=== PATIENT | female | born 1950 | race Caucasian/White ===

== ENCOUNTER 2017-05-29 12:45 | Outpatient (CLI) | payer MEDICARE, MEDICAID ==
[2017-05-29 19:31] LABS: BASOPHILS # (AUTO) 0.1 10^3/uL (0.0-0.1); BASOPHILS % (AUTO) 0.9 %; EOSINOPHILS # (AUTO) 0.1 10^3/uL (0.0-0.7); EOSINOPHILS % (AUTO) 1.7 %; HCT - HEMATOCRIT 37.5 % (37.0-47.0); HGB - HEMOGLOBIN 12.1 g/dL (12.0-16.0); LYMPHOCYTES # (AUTO) 1.7 10^3/uL (1.5-3.5); LYMPHOCYTES % (AUTO) 24.8 %; MEAN CORPUSCULAR HEMOGLOBIN 29.2 pg (27.0-31.0); MEAN CORPUSCULAR HGB CONC 32.4 g/dL (32.0-36.0); MEAN CORPUSCULAR VOLUME 90.1 fL (81.0-99.0); MONOCYTES # (AUTO) 0.5 10^3/uL (0.0-1.0); MONOCYTES % (AUTO) 7.1 %; NEUTROPHILS # (AUTO) 4.4 10^3/uL (1.5-6.6); NEUTROPHILS % (AUTO) 65.5 %; RED BLOOD COUNT 4.16 10^6/uL (4.20-5.40); UNCORRECTED WHITE BLOOD COUNT 6.7 x10^3/uL; WHITE BLOOD COUNT 6.7 x10^3/uL (4.8-10.8)
[2017-05-29 19:32] LABS: H. PYLORI IGG ANTIBODY Negative (Negative); HPYLORI NEG QC Negative (Negative); HPYLORI POS QC POSITIVE (Positive)
== END 2017-05-29 12:46 ==
LOC: LAB.WCP 12:45
PROVIDERS: ATTEND Family Medicine
DX: K21.9 Gastro-esophageal reflux disease without esophagitis (principal); K92.0 Hematemesis
CPT/HCPCS: 36415; 85025; 87339

== ENCOUNTER 2017-06-14 08:00 | Outpatient (CLI) | payer MEDICARE, MEDICAID ==
[2017-06-14 19:52] LABS: THYROID STIMULATING HORMONE 0.41 uIU/mL (0.34-5.60)
[2017-06-14 19:59] LABS: FERRITIN 14.5 ng/mL (11.0-306.8)
[2017-06-14 20:47] LABS: ALBUMIN/GLOBULIN RATIO 1.3 (1.0-2.2); BILIRUBIN,TOTAL 0.2 mg/dL (0.2-1.0); BUN - BLOOD UREA NITROGEN 12 mg/dL (6-20); CALCIUM 9.1 mg/dL (8.5-10.3); CARBON DIOXIDE - CO2 27 mmol/L (21-32); CHLORIDE 103 mmol/L (101-111); CREATININE 0.7 mg/dL (0.4-1.0); GFR - MDRD 83 (>89); GLUCOSE 123 mg/dL (70-100); IRON 18 ug/dL (28-170); SODIUM 141 mmol/L (135-145); TOTAL IRON BINDING CAPACITY 529 ug/dL (250-450); TOTAL PROTEIN 6.7 g/dL (6.7-8.2); TRANSFERRIN 378 mg/dL (192-382)
== END 2017-06-14 08:01 | disposition home or self-care (01) ==
LOC: LAB.WCP 08:00
PROVIDERS: ATTEND Physician Assistant Medical
DX: F10.20 Alcohol dependence, uncomplicated (principal); K21.9 Gastro-esophageal reflux disease without esophagitis; E53.8 Deficiency of other specified B group vitamins; E03.9 Hypothyroidism, unspecified
CPT/HCPCS: 36415; 80053; 82306; 82607; 82728; 83540; 84425; 84443; 84466

== ENCOUNTER 2017-09-04 11:38 | Day surgery (SDC) | payer MEDICARE, MEDICAID ==
[~2017-09-04 11:38] MED LIST: LACTATED RINGERS 1,000 ML IV ONE
[2017-09-04] MEDS ORDERED: LACTATED RINGERS 1,000 ML IV ONE (12:12)
[2017-09-04] MEDS ORDERED: MIDAZOLAM 2 MG/2 ML VIAL IVP ONE (12:21)
[2017-09-04] MEDS ORDERED: fentaNYL 100 MCG/2 ML VIAL IVP ONE (12:21)
[2017-09-04] MEDS ORDERED: BENZOCAINE/TETRACAINE/BUTAMBEN SPRAY 56 GM TOP ONE (12:26)
[2017-09-04] MEDS ORDERED: LIDO GARGLE 30 ML BOTTLE PO ONE (12:26)
[2017-09-04 13:48] VITALS: BP 126/87
== END 2017-09-04 11:39 | disposition home or self-care (01) ==
LOC: SDS 11:38
PROVIDERS: ATTEND Surgery
PROC: 0DB48ZX Excision of Esophagogastric Junction, Via Natural or Artificial Opening Endoscopic, Diagnostic (ICD-10-PCS; principal; 2017-09-04 12:45)
DX: K20.9 Esophagitis, unspecified (principal); K44.9 Diaphragmatic hernia without obstruction or gangrene; I10 Essential (primary) hypertension; E03.9 Hypothyroidism, unspecified; G47.30 Sleep apnea, unspecified
CPT/HCPCS: 43239; A9270; J7120

== ENCOUNTER 2017-09-18 08:39 | Outpatient (CLI) | payer MEDICARE, MEDICAID ==
[2017-09-18 13:23] LABS: CHOLESTEROL 175 mg/dL; HDL CHOLESTEROL 59 mg/dL; LDL CHOLESTEROL,CALCULATED 99 mg/dL; LDL/HDL RATIO 1.7 (<4.4); VLDL CHOLESTEROL 17 mg/dL
== END 2017-09-18 08:40 | disposition home or self-care (01) ==
LOC: LAB.N 08:39
PROVIDERS: ATTEND Nurse Practitioner
DX: F41.1 Generalized anxiety disorder (principal); I10 Essential (primary) hypertension; F33.1 Major depressive disorder, recurrent, moderate; E03.9 Hypothyroidism, unspecified
CPT/HCPCS: 36415; 80061; 83721

== ENCOUNTER 2018-04-11 11:58 | Outpatient (CLI) | payer MEDICARE, MEDICAID ==
[2018-04-11 19:19] LABS: CALCIUM 8.8 mg/dL (8.5-10.3); CREATININE 0.5 mg/dL (0.4-1.0)
== END 2018-04-11 11:59 | disposition home or self-care (01) ==
LOC: LAB.N 11:58
PROVIDERS: ATTEND Registered Nurse
DX: F31.9 Bipolar disorder, unspecified (principal); Z79.899 Other long term (current) drug therapy
CPT/HCPCS: 36415; 80048

== ENCOUNTER 2018-09-10 10:40 | Outpatient (CLI) | payer MEDICARE, MEDICAID ==
--- NOTE | 2018-09-10 14:45 | XRAY Report ---
Reason: SHOULDER JOINT PAIN Procedure Date: 09/10/2018 Accession Number: [id number] / [id number] Procedure: XRN - Shoulder 2 View RT CPT Code: FULL RESULT: EXAM: RIGHT SHOULDER RADIOGRAPHY EXAM DATE: 09/10/2018 11:04 AM. CLINICAL HISTORY: Shoulder joint pain. COMPARISON: None. TECHNIQUE: 3 views. FINDINGS: Bones: Normal. No fracture or bone lesion. Joints: There is narrowing of the glenohumeral joint with subchondral sclerosis in the humeral head and moderate to large inferior osteophytes of the humeral head and adjacent bony glenoid. Smaller superior glenoid osteophyte. Soft tissues: The visualized hemithorax is unremarkable. No soft tissue swelling. IMPRESSION: Moderate to severe degenerative arthritis of the glenohumeral joint. [facility]
== END 2018-09-10 10:41 | disposition home or self-care (01) ==
LOC: DI.N 10:40
PROVIDERS: ATTEND Nurse Practitioner
DX: M19.011 Primary osteoarthritis, right shoulder (principal)

== ENCOUNTER 2018-11-03 09:49 | Outpatient (CLI) | payer MEDICARE, MEDICAID ==
--- NOTE | 2018-11-05 08:47 | MRI Report ---
Reason: DEGENERATIVE JOINT DISEASE Procedure Date: 11/03/2018 Accession Number: [id number] / [id number] Procedure: MRI - Shoulder RT W/O CPT Code: FULL RESULT: EXAM: RIGHT SHOULDER MRI WITHOUT CONTRAST EXAM DATE: 11/03/2018 11:00 AM. CLINICAL HISTORY: Worsening shoulder pain. Limited range of motion. COMPARISON: SHOULDER 2 VIEW RT 09/10/2018 11:08 AM. TECHNIQUE: Multiplanar, multisequence T1-weighted and fluid-sensitive sequences of the shoulder without contrast. Other: None. FINDINGS: Acromioclavicular Region: The acromion is type II. Moderate acromioclavicular joint osteoarthritis with edema of the adjacent ends of the acromion and clavicle. Inferiorly projecting osteophytes narrow the subacromial space. There is a moderate-sized bursal effusion. Glenohumeral Region: There is severe erosion of the glenohumeral cartilage with osteophyte formation and subchondral cysts. There is subchondral edema and remodeling of the glenoid and humeral head. The findings are consistent with severe osteoarthritis. There is severe labral degeneration. There is a moderate-sized joint effusion with synovial thickening consistent with synovitis. Bone Marrow: See above. Labrum: See above. Musculature/Rotator Cuff: There is a low-grade partial-thickness tear of the humeral surface fibers of supraspinatus at the musculotendinous junction measuring approximately 16 x 13 mm. There is moderate infraspinatus tendinosis. A focus of low T1, low T2 signal change in the infraspinatus tendon suggests prior calcific tendinosis. There is low-grade partial-thickness tearing of the musculotendinous junction of subscapularis. No edema or fatty atrophy. Biceps Tendon: The long head of the biceps tendon and biceps pedrito are intact. Other: The subcutaneous tissues are unremarkable. IMPRESSION: 1. Severe glenohumeral osteoarthritis with a joint effusion and synovitis. 2. Mild to moderate acromioclavicular joint osteoarthritis. 3. Low-grade degenerative fraying of supraspinatus and subscapularis. Findings suggestive of prior calcific tendinosis of infraspinatus. 4. Circumferential labral degeneration. [facility]
== END 2018-11-03 09:50 | disposition home or self-care (01) ==
LOC: DI 09:49
PROVIDERS: ATTEND Orthopaedic Surgery Sports Medicine
DX: M19.011 Primary osteoarthritis, right shoulder (principal); M25.411 Effusion, right shoulder; M65.811 Other synovitis and tenosynovitis, right shoulder

== ENCOUNTER 2018-11-13 13:06 | Outpatient (CLI) | payer MEDICARE, MEDICAID ==
[2018-11-13] MEDS ORDERED: BUFFERED LIDOCAINE 10 ML SYRINGE ONE (13:15)
[2018-11-13] MEDS ORDERED: IOTHALAMATE MEGLUMINE 50 ML VIAL ONE (13:15)
[2018-11-13] MEDS ORDERED: methylPREDNISolone ACETATE 40 MG/ML VIAL IM ONE ×2 (14:59)
[2018-11-13] MEDS ORDERED: IOTHALAMATE MEGLUMINE 50 ML VIAL IVP ONE ×2 (14:59)
[2018-11-13] MEDS ORDERED: BUFFERED LIDOCAINE 10 ML SYRINGE IU ONE ×2 (14:59)
[2018-11-13] MEDS ORDERED: BUPIVACAINE 0.5% PF 10 ML VIAL IM ONE ×2 (15:13)
[2018-11-13] MEDS ORDERED: ROPIVACAINE 0.2% PF 20 ML AMPULE SUBQ ONE (15:49)
--- NOTE | 2018-11-13 16:21 | XRAY Report ---
Reason: DEGENERATIVE JOINT DISEASE Procedure Date: 11/13/2018 Accession Number: [id number] / [id number] Procedure: FL - Inj/Aspiration Major Joint CPT Code: FULL RESULT: EXAM: RIGHT SHOULDER FLUOROSCOPIC INJECTION FOR PAIN EXAM DATE: 11/13/2018 02:08 PM. REFERRING PROVIDER: Glenn Webber. CLINICAL HISTORY: Degenerative joint disease. COMPARISON: SHOULDER 2 VIEW RT 09/10/2018 11:08 AM. TECHNIQUE: The risks, benefits and alternatives of this examination were discussed in detail with the patient. Risks of bleeding, infection, and increasing discomfort in the right shoulder joint were included in the discussion. The patient appeared to understand, and signed, dated, and timed an informed consent document, which was also signed by me and a witness. The skin was prepped with chlorhexidine gluconate and draped in the usual sterile manner, and 5 mL of 1% buffered lidocaine was used for local analgesia. Under fluoroscopic control, a 22-gauge needle was placed into the right shoulder joint capsule. After achieving low resistance to the injection of lidocaine, then a combination of 8 mL of 0.5% bupivacaine, 2 mL (80 mg) of Depo-Medrol mixed with 5 cc of Conray 60 was injected without difficulty. The needle was removed, and the patient was released from our clinic. Patient reported immediate improvement in pain symptoms estimated at 100% reduction. The patient was instructed in the potential signs and symptoms for infection or septic arthritis. The patient was asked to call [facility] or the referring physician or go to the emergency room if these signs and symptoms should appear. Fluoroscopy Time: 1 minute 21 seconds. Number of Images: 3 IMPRESSION: Successful injection of right shoulder for pain relief as noted above. [facility]
== END 2018-11-13 13:07 | disposition home or self-care (01) ==
LOC: DI 13:06
PROVIDERS: ATTEND Orthopaedic Surgery Sports Medicine
DX: M19.011 Primary osteoarthritis, right shoulder (principal)
CPT/HCPCS: 20610; J1030; Q9961